=== PATIENT | male | born 1960 | race Caucasian/White ===

== ENCOUNTER 2017-03-12 05:43 | Inpatient (IN) | payer BC ==
[2017-03-11 10:52] VITALS: BMI 33.1
[2017-03-12] VITALS (57 sets, daily range): BP systolic 126–173; BP diastolic 44–92; PULSE 63–78; RESP 16–20; Ht 167.6 cm; Wt 96.0 kg
[~2017-03-12] VITALS: Ht 167.6 cm; Wt 96.0 kg
[2017-03-12] MEDS ORDERED: CEFAZOLIN 2 GM/50 ML (PMX) 50 ML IVPB ONE (06:00)
[2017-03-12] MEDS ORDERED: SOD CHLORIDE 0.9% 1,000 ML IV SCH ×2 (06:00→09:33)
[2017-03-12] MEDS ORDERED: GLYB5TAB3 PO (06:32)
[2017-03-12] MEDS ORDERED: METF850T PO (06:32)
[2017-03-12] MEDS ORDERED: NOVOLOG (06:32)
[2017-03-12] MEDS ORDERED: BUPIVACAINE 0.25% (MPF) 10 ML 10 ML VIAL ONE ×2 (06:47→09:10)
[2017-03-12] MEDS ORDERED: LOSA25TA5 PO (06:52)
[2017-03-12] MEDS ORDERED: MIDAZOLAM 1 MG/ML 2 ML INJ ONE (07:45)
[2017-03-12] MEDS ORDERED: ROCURONIUM 50 MG INJ ONE (07:45)
[2017-03-12] MEDS ORDERED: PROPOFOL 20 ML ONE (07:45)
[2017-03-12] MEDS ORDERED: LIDOCAINE 2% (SDV) 5 ML INJ ONE (07:45)
[2017-03-12] MEDS ORDERED: FENTAnyl 50 MCG/ML VIAL ONE (07:45)
[2017-03-12] MEDS ORDERED: SUCCINYLCHOLINE CHLORIDE 100 MG/5 ML SYG IV ONE (07:45)
[2017-03-12] MEDS ORDERED: FAMOTIDINE 20 MG INJ ONE ×2 (07:57)
[2017-03-12] MEDS ORDERED: ONDANSETRON 4 MG INJ ONE (07:57)
[2017-03-12] MEDS ORDERED: LABETALOL HCL 20MG INJ ONE (08:21)
[2017-03-12] MEDS ORDERED: EPHEDrine SULFATE 50 MG/5 ML SYG ONE (08:28)
[2017-03-12] MEDS ORDERED: INSULIN ASPART [NOVOLOG] 3 ML PEN SC ONE (08:30)
[2017-03-12] MEDS ORDERED: PROCHLORPERAZINE 10 MG INJ IV PRN (08:30)
[2017-03-12] MEDS ORDERED: FENTAnyl 50 MCG/ML VIAL IV PRN (08:30)
[2017-03-12] MEDS ORDERED: DIPHENHYDRAMINE 50 MG INJ IV PRN (08:30)
[2017-03-12] MEDS ORDERED: OXYCODONE/ACETAMINOPHEN (5/325) TAB PO PRN ×2 (08:30)
[2017-03-12] MEDS ORDERED: ONDANSETRON 4 MG INJ IV PRN ×2 (08:30→18:00)
[2017-03-12] MEDS ORDERED: HYDROmorphONE (0.2 MG/ML) 10ML SYG IV PRN (08:30)
[2017-03-12] MEDS ORDERED: MEPERIDINE 25 MG INJ IV PRN (08:30)
[2017-03-12] MEDS ORDERED: HYDROmorphONE 2 MG/ML SYG ONE (08:31)
[2017-03-12] MEDS ORDERED: GLYCOPYRROLATE 0.4 MG INJ ONE (09:15)
[2017-03-12] MEDS ORDERED: NEOSTIGMINE 3 MG/3 ML SYRINGE ONE (09:15)
--- NOTE | 2017-03-12 09:44 | OPR ---
Date/Time of Note Date/Time of Note DATE: 03/12/17 TIME: 09:36 Operative Report Procedure Date: Mar 12, 2017 Preoperative Diagnosis symptomatic gallstones Postoperative Diagnosis same Operation/Procedure Performed 1. laparoscopic converted to open cholecystectomy 2. intraabdominal placement of #19 trey drain 3. therapeutic injection of subcutaneous local anesthesia Surgeon see signature line Critical Care Paramedic none Anesthesia Type: general Estimated Blood Loss: 150 - 200 ml's Transfusion none Specimen gallbladder Grafts/Implants none Complications none Pt Condition Post Procedure: stable Indications This is a 56-year-old male with long-standing symptomatic gallstones. Patient finally came in for removal of his gallbladder. Risks alternatives benefits and personnel were discussed the patient. Surgical complications including but not limited to bleeding infection pain intra-abdominal organ injury, bile duct injury, conversion to open need for reoperation were discussed the patient. Patient expressed understanding consents to the operation. Procedure Description Patient is taken to the OR and prepped and draped in the usual sterile fashion. Surgical timeout is performed. IV antibiotics were given. Informed local transverse incision is made with a 15 blade. Dissection cautery was carried onto the fascia. The fascia was grasped with Jovanny's and divided with curved Bautista scissors. 0 Vicryl U stitch was placed into the fascia. Blueness on trocar is introduced. Pneumoperitoneum is established. Midepigastric 12 mm optical trocar was placed under direct visualization right upper quadrant upper flank 5 mm optical trochars were placed under direct visualization. Upon initial inspection there is a severe amount of adhesions to the gallbladder. These were taken down bluntly and with cautery. Further inspection showed that the gallbladder was completely intrahepatic. Attempts were made for dome down approach however the gallbladder appeared to severely adhesed into the liver and this was not amenable to laparoscopic approach. Conversion to open was made. Right subcostal incision was made with a 15 blade. Dissection cautery was carried down to the muscle in the anterior abdominal wall layer. Retractors were placed. The gallbladder was visualized and approached the dome down approach. The gallbladder was severely Gucci and it was difficult to define the borders. The gallbladder was opened and the stones were removed. The extent of the gallbladder was identified. Due to thickened tissues decision was made to do a subtotal cholecystectomy with 35 mm echelon vascular stapler. 2 fires were required to resect the gallbladder. The raw surface of the gallbladder bed had severe bruising. This was controlled with cautery. Additionally due to its intrahepatic nature BP 1-0 chromic blunt liver needles were used to close the raw surface. There is good hemostasis additionally Surgicel was placed for additional support. A right flank #19 Trey drain was placed. The drain was secured with 2-0 nylon suture. Skin was closed using skin jeffrey. Therapeutic subcutaneous local anesthesia was injected throughout the incision. Dry dressings were applied There was a significant amount of blood loss approximately 160 ml. The patient was stable however due to the blood loss the patient was sent to the ICU for continued monitoring. Nelsy CODY Mar 12, 2017 09:44
[2017-03-12] MEDS ORDERED: ACETAMINOPHEN 1000MG/100ML IV 100 ML IVPB ONE (10:00)
[2017-03-12] MEDS ORDERED: NALOXONE (0.4 MG/ML) INJ IV PRN (10:00)
[2017-03-12] MEDS: HYDROmorphONE 0.2 MG/ML PCA IV SCH (10:08)
[2017-03-12 10:32] LABS: BASOPHIL # 0.1 10^3/ul (0.0-0.1); BASOPHILS % 0.4 % (0.0-2.0); EOSINOPHILS # 0.2 10^3/ul (0.0-0.5); EOSINOPHILS % 1.1 % (0.0-7.0); HEMATOCRIT 33.8 % (42.0-52.0); HEMOGLOBIN 11.2 g/dl (14.0-18.0); HOLD TRANSMISSIONS 1; LYMPHOCYTES # 1.2 10^3/ul (0.8-2.9); MEAN CORPUSCULAR HEMOGLOBIN 29.1 pg (29.0-33.0); MEAN CORPUSCULAR HGB CONC 33.1 g/dl (32.0-37.0); MEAN CORPUSCULAR VOLUME 87.8 fl (82.0-101.0); MEAN PLATELET VOLUME 12.4 fl (7.4-10.4); MONOCYTE # 0.7 10^3/ul (0.3-0.9); MONOCYTES % 4.8 % (0.0-11.0); NEUTROPHIL # 12.7 10^3/ul (1.6-7.5); PLATELET COUNT 163 10^3/UL (140-415); RED BLOOD COUNT 3.85 10^6/ul (4.70-6.10); RED CELL DISTRIBUTION WIDTH 13.1 % (11.5-14.5); WHITE BLOOD COUNT 14.9 10^3/ul (4.8-10.8)
[2017-03-12 10:58] LABS: ALBUMIN 3.5 g/dl (3.3-4.9); BILIRUBIN,INDIRECT 0.3 mg/dl (0-1.1); BILIRUBIN,TOTAL 0.3 mg/dl (0.2-1.3); CALCIUM 8.4 mg/dl (8.4-10.2); CREATININE 0.96 mg/dl (0.61-1.24); POTASSIUM 4.5 mmol/L (3.5-5.1); TOTAL PROTEIN 6.4 g/dl (6.1-8.1)
[2017-03-12 10:59] LABS: ALBUMIN/GLOBULIN RATIO 1.2
[2017-03-12] MEDS ORDERED: hydrALAzine 20 MG INJ ONE (12:17)
[2017-03-12] MEDS ORDERED: hydrALAzine 20 MG INJ IV ONE (12:30)
[2017-03-12] MEDS: CEFAZOLIN 2 GM/50 ML (PMX) 50 ML IVPB SCH ×2 (16:23→20:24)
[2017-03-12] MEDS ORDERED: hydrALAzine 20 MG INJ IV PRN (18:00)
[2017-03-12] MEDS: SOD CHLORIDE 0.9% 1,000 ML IV SCH (18:00)
[2017-03-12] MEDS ORDERED: GLUCOSE GEL 15 GRAM TUBE PO PRN ×2 (18:30)
[2017-03-12] MEDS ORDERED: DEXTROSE 50% 50 ML SYRINGE IV PRN ×2 (18:30)
[2017-03-12] MEDS ORDERED: GLUCOSE GEL 15 GRAM TUBE BUCCAL PRN (18:30)
[2017-03-12] MEDS ORDERED: GLUCAGON 1 MG INJ IM PRN (18:30)
[2017-03-12 19:06] LABS: BASOPHILS % 0.3 % (0.0-2.0); EOSINOPHILS % 0.2 % (0.0-7.0); HEMATOCRIT 33.1 % (42.0-52.0); HEMOGLOBIN 11.1 g/dl (14.0-18.0); LYMPHOCYTES # 0.7 10^3/ul (0.8-2.9); LYMPHOCYTES % 4.8 % (15.0-51.0); MEAN CORPUSCULAR HEMOGLOBIN 29.5 pg (29.0-33.0); MEAN CORPUSCULAR HGB CONC 33.5 g/dl (32.0-37.0); MEAN PLATELET VOLUME 12.2 fl (7.4-10.4); MONOCYTE # 0.8 10^3/ul (0.3-0.9); NEUTROPHILS % 88.3 % (39.0-77.0); PLATELET COUNT 145 10^3/UL (140-415); RED BLOOD COUNT 3.76 10^6/ul (4.70-6.10); RED CELL DISTRIBUTION WIDTH 13.2 % (11.5-14.5); WHITE BLOOD COUNT 13.7 10^3/ul (4.8-10.8)
[2017-03-12] MEDS: INSULIN ASPART [NOVOLOG] 3 ML PEN SC SCH (20:40)
[2017-03-13] VITALS (11 sets, daily range): BP systolic 113–144; BP diastolic 57–66; PULSE 69–90; RESP 16–20
[2017-03-13 00:49] LABS: ABNORMAL IP MESSAGE 1; BASOPHILS % 0.3 % (0.0-2.0); EOSINOPHILS % 0.2 % (0.0-7.0); HEMATOCRIT 32.1 % (42.0-52.0); HEMOGLOBIN 10.8 g/dl (14.0-18.0); LYMPHOCYTES # 0.5 10^3/ul (0.8-2.9); MEAN CORPUSCULAR HEMOGLOBIN 29.6 pg (29.0-33.0); MEAN CORPUSCULAR HGB CONC 33.6 g/dl (32.0-37.0); MEAN CORPUSCULAR VOLUME 87.9 fl (82.0-101.0); MEAN PLATELET VOLUME 12.3 fl (7.4-10.4); MONOCYTE # 0.6 10^3/ul (0.3-0.9); MONOCYTES % 5.3 % (0.0-11.0); NEUTROPHIL # 9.7 10^3/ul (1.6-7.5); NEUTROPHILS % 88.6 % (39.0-77.0); PLATELET COUNT 145 10^3/UL (140-415); POSITIVE DIFF @See below; RED BLOOD COUNT 3.65 10^6/ul (4.70-6.10); RED CELL DISTRIBUTION WIDTH 13.2 % (11.5-14.5); WHITE BLOOD COUNT 10.9 10^3/ul (4.8-10.8)
[2017-03-13] MEDS: INSULIN GLARGINE [LANtus] 3 ML PEN SC SCH ×2 (01:17→22:15)
[2017-03-13] MEDS: CEFAZOLIN 2 GM/50 ML (PMX) 50 ML IVPB SCH (01:18)
[2017-03-13] MEDS: ACCU-CHEK XX SCH (02:02)
--- NOTE | 2017-03-13 04:01 | HP ---
DATE OF ADMISSION: 03/12/2017 CHIEF COMPLAINT AND HISTORY OF PRESENT ILLNESS: The patient is a 56-year-old gentleman with a histo ry of hypertension, diabetes; was seen by his primary care physician and was noted to have some abno rmality in his labs, apparently elevated liver enzymes and the patient subsequently underwent diagno stic studies and was diagnosed with gallstones. The patient was seen by Dr. Diaz as an outpatient an d was brought in to the hospital today and initial plan was to do laparoscopic cholecystectomy, graham jb, due to adhesions the patient had to undergo open cholecystectomy. The patient is being admitte d for further evaluation and management. Patient denied any chest pain or shortness of breath. No reported headache, dizziness, syncope. No history of cholecystitis. No history of fever or chills. No known history of coronary artery disease or congestive heart failure. No history of focal weak ness in the past. No history of paresthesias or weakness in any extremity. REVIEW OF SYSTEMS: Other than postoperative pain, the rest of the review of systems were unremarkab le. PAST SURGICAL HISTORY: None. ALLERGIES: NONE. SOCIAL HISTORY: Ex-smoker. No significant history of alcohol abuse. PHYSICAL EXAMINATION: GENERAL: The patient is conscious, awake, alert. VITAL SIGNS: Temperature 97.6, pulse 72, respirations 20, blood pressure 142/68, O2 sat ____% on 2 liters nasal cannula. HEENT: No eye discharge or redness. Extraocular movement intact. Oropharynx clear. NECK: Supple. No mass, no thyromegaly. CHEST: Fairly clear. CARDIOVASCULAR: ____ normal. No murmur. ABDOMEN: The patient is status post open cholecystectomy. EXTREMITIES: No leg edema. Pedal pulses palpable. SKIN: Without acute rash. NEUROLOGIC: The patient is awake, alert, fairly oriented with no gross focal deficits. LABORATORY DATA: Sodium 141, potassium 4.5, BUN 20, creatinine 0.9, glucose 253, AST 112, ALT 116, alk phos 99. IMPRESSION: 1. Gallstone with possible chronic cholecystitis, status post open cholecystectomy. 2. Hypertension. 3. Diabetes mellitus. PLAN: Patient admitted on medical floor. Patient will be kept n.p.o. except ice chips. The patien t will be started on sliding scale insulin. I will also add small dose of Lantus. The patient at h ome was on multiple oral agents and was taking NovoLog. He says he was taking NovoLog up to 20 unit s every day. We will use SCDs for DVT prophylaxis. As far as hypertension is concerned, will use I V hydralazine on p.r.n. basis. ____ with the patient's family. We will continue to follow him from a medical standpoint. Dictated By: ROCKY PORTER/HLOA Conf#: [id number] DID#: [id number]
[2017-03-13] MEDS: SOD CHLORIDE 0.9% 1,000 ML IV SCH ×2 (05:27→20:40)
[2017-03-13] MEDS: HYDROmorphONE 0.2 MG/ML PCA IV SCH (07:25)
[2017-03-13 08:04] LABS: BASOPHILS % 0.2 % (0.0-2.0); EOSINOPHILS # 0.1 10^3/ul (0.0-0.5); EOSINOPHILS % 0.6 % (0.0-7.0); HEMOGLOBIN 9.9 g/dl (14.0-18.0); LYMPHOCYTES # 0.9 10^3/ul (0.8-2.9); LYMPHOCYTES % 8.2 % (15.0-51.0); MEAN CORPUSCULAR HEMOGLOBIN 29.5 pg (29.0-33.0); MEAN CORPUSCULAR VOLUME 89.3 fl (82.0-101.0); MONOCYTE # 0.8 10^3/ul (0.3-0.9); MONOCYTES % 6.9 % (0.0-11.0); NEUTROPHIL # 9.5 10^3/ul (1.6-7.5); NEUTROPHILS % 83.6 % (39.0-77.0); PLATELET COUNT 157 10^3/UL (140-415); RED BLOOD COUNT 3.36 10^6/ul (4.70-6.10); RED CELL DISTRIBUTION WIDTH 13.5 % (11.5-14.5); WHITE BLOOD COUNT 11.4 10^3/ul (4.8-10.8)
--- NOTE | 2017-03-13 08:27 | PN ---
Date/Time of Note Date/Time of Note DATE: 03/13/17 TIME: 08:25 Assessment/Plan VTE Prophylaxis VTE Prophylaxis Intervention: SCD's Lines/Catheters IV Catheter Type (from Nrs): Saline Lock Assessment/Plan Chief Complaint/Hosp Course s/p lap converated to open due to difficult body habitus and intrahepatic gallbladder with drain placement Problems: Assessment/Plan dc home once tolerating diet Subjective 24 Hr Interval Summary Free Text/Dictation doing well, no nausea no vomiting hgb stable Exam/Review of Systems Vital Signs Vitals Vital Signs Date Time Temp Pulse Resp B/P Pulse Ox O2 Delivery O2 Flow Rate FiO2 03/13/17 08:21 69 03/13/17 04:03 98.1 20 134/63 99 03/12/17 20:20 Nasal Cannula 2.0 Intake and Output 03/12/17 03/12/17 03/13/17 15:00 23:00 07:00 Intake Total 1500 ml 100 ml 1750 ml Output Total 320 ml 93 ml 400 ml Balance 1180 ml 7 ml 1350 ml Exam c/d/i Results Result Diagram: 03/13/17 0748 03/12/17 1021 Results 24 hrs Laboratory Tests Test 03/12/17 09:46 03/12/17 10:21 03/12/17 15:00 03/12/17 18:40 Bedside Glucose 250 H 260 H White Blood Count 14.9 H 13.7 H Red Blood Count 3.85 L 3.76 L Hemoglobin 11.2 L 11.1 L Hematocrit 33.8 L 33.1 L Mean Corpuscular Volume 87.8 88.0 Mean Corpuscular Hemoglobin 29.1 29.5 Mean Corpuscular Hemoglobin Concent 33.1 33.5 Red Cell Distribution Width 13.1 13.2 Platelet Count 163 145 Mean Platelet Volume 12.4 H 12.2 H Neutrophils % 85.0 H 88.3 H Lymphocytes % 8.0 L 4.8 L Monocytes % 4.8 6.0 Eosinophils % 1.1 0.2 Basophils % 0.4 0.3 Nucleated Red Blood Cells % 0.0 0.0 Neutrophils # 12.7 H 12.0 H Lymphocytes # 1.2 0.7 L Monocytes # 0.7 0.8 Eosinophils # 0.2 0.0 Basophils # 0.1 0.0 Nucleated Red Blood Cells # 0.0 0.0 CBC Results Faxed/Phoned 1 *H Sodium Level 141 Potassium Level 4.5 Chloride Level 110 Carbon Dioxide Level 25 Anion Gap 11 Blood Urea Nitrogen 20 Creatinine 0.96 Glucose Level 253 H Calcium Level 8.4 Total Bilirubin 0.3 Direct Bilirubin 0.00 Indirect Bilirubin 0.3 Aspartate Amino Transf (AST/SGOT) 112 H Alanine Aminotransferase (ALT/SGPT) 116 H Alkaline Phosphatase 99 Total Protein 6.4 Albumin 3.5 Globulin 2.90 Albumin/Globulin Ratio 1.20 Test 03/12/17 20:26 03/13/17 00:35 03/13/17 00:50 03/13/17 07:48 Bedside Glucose 288 H 232 H White Blood Count 10.9 #H 11.4 H Red Blood Count 3.65 L 3.36 L Hemoglobin 10.8 L 9.9 L Hematocrit 32.1 L 30.0 L Mean Corpuscular Volume 87.9 89.3 Mean Corpuscular Hemoglobin 29.6 29.5 Mean Corpuscular Hemoglobin Concent 33.6 33.0 Red Cell Distribution Width 13.2 13.5 Platelet Count 145 157 Mean Platelet Volume 12.3 H 13.0 H Neutrophils % 88.6 H 83.6 H Lymphocytes % 5.0 L 8.2 L Monocytes % 5.3 6.9 Eosinophils % 0.2 0.6 Basophils % 0.3 0.2 Nucleated Red Blood Cells % 0.0 0.0 Neutrophils # 9.7 H 9.5 H Lymphocytes # 0.5 L 0.9 Monocytes # 0.6 0.8 Eosinophils # 0.0 0.1 Basophils # 0.0 0.0 Nucleated Red Blood Cells # 0.0 0.0 Medications Medications Current Medications Cefazolin Sodium/ Dextrose (Ancef 2 Gm/50 ml (Pmx)) 50 ml @ 100 mls/hr Q8H IVPB Last administered on 03/13/17 01:18; Admin Dose 100 MLS/HR; Start 03/12 at 10:00; Stop 03/13/17 at 09:59 Naloxone HCl (Narcan) 0.2 mg Q2M PRN IV RR 8 BREATHS/MIN OR LESS; Start at 10:00 Hydromorphone HCl (Dilaudid [employer]) Q4PCA IV Last administered on 03/13/17 07: 25; Admin Dose 6 MG; Start 03/12/17 at 10:00 Diagnostic Test (Pha) (Accu-Chek) 1 ea 02 XX Last administered on 03/13/17 02 :02; Admin Dose 1 EA; Start 03/13/17 at 02:00 Ondansetron HCl (Zofran Inj) 4 mg Q4H PRN IV NAUSEA AND/OR VOMITING; Start 05/17 at 18:00 Hydralazine HCl 10 mg 10 mg Q4H PRN IV sbp>160,dbp>95; Start 03/12/17 at 18:00 Sodium Chloride (NS) 1,000 ml @ 75 mls/hr [id number] IV Last administered on 05:27; Admin Dose 75 MLS/HR; Start 03/12/17 at 18:00 Miscellaneous Information 1 ea NOTE XX ; Start 03/12/17 at 18:30 Glucose (Glutose) 15 gm Q15M PRN PO DECREASED GLUCOSE; Start 03/12/17 at 18:30 Glucose (Glutose) 22.5 gm Q15M PRN PO DECREASED GLUCOSE; Start 03/12/17 at 18: 30 Dextrose (D50w Syringe) 25 ml Q15M PRN IV DECREASED GLUCOSE; Start 03/12/17 at 18:30 Dextrose (D50w Syringe) 50 ml Q15M PRN IV DECREASED GLUCOSE; Start 03/12/17 at 18:30 Glucagon (Glucagen) 1 mg Q15M PRN IM DECREASED GLUCOSE; Start 03/12/17 at 18: 30 Glucose (Glutose) 15 gm Q15M PRN BUCCAL DECREASED GLUCOSE; Start 03/12/17 at 18:30 Insulin Glargine (Lantus) 10 unit DAILY@20 SC Last administered on 03/13/17 01:17; Admin Dose 10 UNIT; Start 03/12/17 at 23:00 Nelsy CODY Mar 13, 2017 08:27
[2017-03-13] MEDS: INSULIN ASPART [NOVOLOG] 3 ML PEN SC SCH ×4 (08:43→21:16)
--- NOTE | 2017-03-13 19:23 | PN ---
Date/Time of Note Date/Time of Note DATE: 03/13/17 TIME: 19:19 Assessment/Plan VTE Prophylaxis VTE Prophylaxis Intervention: SCD's Lines/Catheters IV Catheter Type (from Nrsg): Saline Lock Assessment/Plan Chief Complaint/Hosp Course Hypoactive bowel sounds, negative flatus, patient is still on [employer]AREER REPRESENTATIVE morphine for pain. Will D/C [employer] REPRESENTATIVE morphine, continue Dupuyer and morphine IV as needed for pain. Patient is sitting in bed eating dinner did not eat much for lunch. Anticipate discharge home tomorrow if patient pain is well controlled and patient can tolerate diet well. Problems: Assessment/Plan 1. Gallstone with possible chronic cholecystitis, status post open cholecystectomy. 2. Hypertension. 3. Diabetes mellitus with hemoglobin A1c 9.3. Continue Lantus and NovoLog. Exam/Review of Systems Vital Signs Vitals Vital Signs Date Time Temp Pulse Resp B/P Pulse Ox O2 Delivery O2 Flow Rate FiO2 03/13/17 16:37 76 17 144/66 96 03/13/17 11:56 98.2 03/13/17 08:10 Nasal Cannula 2.0 Intake and Output 03/12/17 03/12/17 03/13/17 15:00 23:00 07:00 Intake Total 1500 ml 100 ml 1750 ml Output Total 320 ml 93 ml 400 ml Balance 1180 ml 7 ml 1350 ml Exam Constitutional: alert, oriented Head: normocephalic Neck: supple Respiratory: clear to auscultation Cardiovascular: nl pulses Gastrointestinal: other (Status post surgery, TANISHA teena), soft, tender Musculoskeletal: nl extremities to inspection Results Result Diagram: 03/13/17 0748 03/12/17 1021 Results 24 hrs Laboratory Tests Test 03/12/17 20:26 03/13/17 00:35 03/13/17 00:50 03/13/17 07:48 Bedside Glucose 288 H 232 H White Blood Count 10.9 #H 11.4 H Red Blood Count 3.65 L 3.36 L Hemoglobin 10.8 L 9.9 L Hematocrit 32.1 L 30.0 L Mean Corpuscular Volume 87.9 89.3 Mean Corpuscular Hemoglobin 29.6 29.5 Mean Corpuscular Hemoglobin Concent 33.6 33.0 Red Cell Distribution Width 13.2 13.5 Platelet Count 145 157 Mean Platelet Volume 12.3 H 13.0 H Neutrophils % 88.6 H 83.6 H Lymphocytes % 5.0 L 8.2 L Monocytes % 5.3 6.9 Eosinophils % 0.2 0.6 Basophils % 0.3 0.2 Nucleated Red Blood Cells % 0.0 0.0 Neutrophils # 9.7 H 9.5 H Lymphocytes # 0.5 L 0.9 Monocytes # 0.6 0.8 Eosinophils # 0.0 0.1 Basophils # 0.0 0.0 Nucleated Red Blood Cells # 0.0 0.0 Hemoglobin A1c 9.4 H Test 03/13/17 08:40 03/13/17 12:47 03/13/17 17:47 Bedside Glucose 161 193 171 Medications Medications Current Medications Diagnostic Test (Pha) (Accu-Chek) 1 ea 02 XX Last administered on 03/13/17 02 :02; Admin Dose 1 EA; Start 03/13/17 at 02:00 Ondansetron HCl (Zofran Inj) 4 mg Q4H PRN IV NAUSEA AND/OR VOMITING; Start 05/17 at 18:00 Hydralazine HCl 10 mg 10 mg Q4H PRN IV sbp>160,dbp>95; Start 03/12/17 at 18:00 Sodium Chloride (NS) 1,000 ml @ 75 mls/hr [id number] IV Last administered on 05:27; Admin Dose 75 MLS/HR; Start 03/12/17 at 18:00 Miscellaneous Information 1 ea NOTE XX ; Start 03/12/17 at 18:30 Glucose (Glutose) 15 gm Q15M PRN PO DECREASED GLUCOSE; Start 03/12/17 at 18:30 Glucose (Glutose) 22.5 gm Q15M PRN PO DECREASED GLUCOSE; Start 03/12/17 at 18: 30 Dextrose (D50w Syringe) 25 ml Q15M PRN IV DECREASED GLUCOSE; Start 03/12/17 at 18:30 Dextrose (D50w Syringe) 50 ml Q15M PRN IV DECREASED GLUCOSE; Start 03/12/17 at 18:30 Glucagon (Glucagen) 1 mg Q15M PRN IM DECREASED GLUCOSE; Start 03/12/17 at 18: 30 Glucose (Glutose) 15 gm Q15M PRN BUCCAL DECREASED GLUCOSE; Start 03/12/17 at 18:30 Insulin Glargine (Lantus) 10 unit DAILY@20 SC Last administered on 03/13/17t 01:17; Admin Dose 10 UNIT; Start 03/12/17 at 23:00 Acetaminophen/ Hydrocodone Bitart ([place] (5/325)) 1 tab Q4H PRN PO PAIN LEVEL 4 -7; Start 03/13/17 at 18:00 Morphine Sulfate (morphine) 2 mg Q4H PRN IV PAIN LEVEL 8-10; Start 03/13/17 at 18:00 SAMANTHA MERCADO Mar 13, 2017 19:23
[2017-03-13] MEDS: HYDROCODONE/APAP (5/325) TAB PO PRN (21:10)
[2017-03-13] MEDS: morphine 2 MG INJ IV PRN (22:09)
[2017-03-14] VITALS (11 sets, daily range): BP systolic 118–135; BP diastolic 60–69; PULSE 72–95; RESP 16–20
[2017-03-14] MEDS: HYDROCODONE/APAP (5/325) TAB PO PRN ×2 (01:24→14:58)
[2017-03-14] MEDS: ACCU-CHEK XX SCH (02:00)
[2017-03-14] MEDS: morphine 2 MG INJ IV PRN ×4 (03:36→20:37)
[2017-03-14] MEDS: INSULIN ASPART [NOVOLOG] 3 ML PEN SC SCH ×4 (08:53→20:46)
[2017-03-14 08:54] LABS: ABNORMAL IP MESSAGE 1; BASOPHILS % 0.3 % (0.0-2.0); EOSINOPHILS # 0.2 10^3/ul (0.0-0.5); EOSINOPHILS % 2.4 % (0.0-7.0); HEMATOCRIT 29.2 % (42.0-52.0); HEMOGLOBIN 9.3 g/dl (14.0-18.0); LYMPHOCYTES # 0.9 10^3/ul (0.8-2.9); LYMPHOCYTES % 9.1 % (15.0-51.0); MEAN CORPUSCULAR HEMOGLOBIN 29.2 pg (29.0-33.0); MEAN CORPUSCULAR HGB CONC 31.8 g/dl (32.0-37.0); MEAN CORPUSCULAR VOLUME 91.5 fl (82.0-101.0); MEAN PLATELET VOLUME 13.3 fl (7.4-10.4); MONOCYTE # 0.9 10^3/ul (0.3-0.9); MONOCYTES % 9.4 % (0.0-11.0); NEUTROPHIL # 7.6 10^3/ul (1.6-7.5); NEUTROPHILS % 78.3 % (39.0-77.0); PLATELET COUNT 124 10^3/UL (140-415); POSITIVE DIFF @See below; RED BLOOD COUNT 3.19 10^6/ul (4.70-6.10); RED CELL DISTRIBUTION WIDTH 13.5 % (11.5-14.5); WHITE BLOOD COUNT 9.7 10^3/ul (4.8-10.8)
[2017-03-14 09:28] LABS: ALBUMIN 3.7 g/dl (3.3-4.9); ALBUMIN/GLOBULIN RATIO 1.27; BILIRUBIN,INDIRECT 0.8 mg/dl (0-1.1); BILIRUBIN,TOTAL 0.8 mg/dl (0.2-1.3); CALCIUM 8.5 mg/dl (8.4-10.2); CREATININE 1.15 mg/dl (0.61-1.24); POTASSIUM 4.3 mmol/L (3.5-5.1); TOTAL PROTEIN 6.6 g/dl (6.1-8.1)
[2017-03-14] MEDS: SOD CHLORIDE 0.9% 1,000 ML IV SCH ×2 (10:00→18:00)
--- NOTE | 2017-03-14 12:07 | PN ---
Date/Time of Note Date/Time of Note DATE: 03/14/17 TIME: 12:06 Assessment/Plan VTE Prophylaxis VTE Prophylaxis Intervention: other Lines/Catheters [facility] Saline Lock Urinary Cath still in place: No Assessment/Plan Chief Complaint/Hosp Course 1. Gallstone with possible chronic cholecystitis, status post open cholecystectomy. 2. Hypertension. 3. Diabetes mellitus with hemoglobin A1c 9.3. Continue Lantus and NovoLog. Problems: Subjective 24 Hr Interval Summary Free Text/Dictation Patient has no complaints Exam/Review of Systems Vital Signs Vitals Vital Signs Date Time Temp Pulse Resp B/P Pulse Ox O2 Delivery O2 Flow Rate FiO2 03/14/17 11:50 98.4 87 18 135/69 95 03/14/17 09:15 Nasal Cannula 2.0 Intake and Output 03/13/17 03/13/17 03/14/17 15:00 23:00 07:00 Intake Total 1350 ml 800 ml Output Total 30 ml 615 ml 20 ml Balance -30 ml 735 ml 780 ml Exam Constitutional: well developed Head: atraumatic, normocephalic Neck: supple Respiratory: clear to auscultation Cardiovascular: regular rate and rhythm Gastrointestinal: non-tender, soft Extremities: normal pulses Results Result Diagram: 03/14/17 0818 03/14/17 0818 Results 24 hrs Laboratory Tests Test 03/13/17 12:47 03/13/17 17:47 03/13/17 21:07 03/14/17 03:33 Bedside Glucose 193 171 197 207 Test 03/14/17 08:18 03/14/17 08:49 White Blood Count 9.7 Red Blood Count 3.19 L Hemoglobin 9.3 L Hematocrit 29.2 L Mean Corpuscular Volume 91.5 Mean Corpuscular Hemoglobin 29.2 Mean Corpuscular Hemoglobin Concent 31.8 L Red Cell Distribution Width 13.5 Platelet Count 124 #L Mean Platelet Volume 13.3 H Neutrophils % 78.3 H Lymphocytes % 9.1 L Monocytes % 9.4 Eosinophils % 2.4 Basophils % 0.3 Nucleated Red Blood Cells % 0.0 Neutrophils # 7.6 H Lymphocytes # 0.9 Monocytes # 0.9 Eosinophils # 0.2 Basophils # 0.0 Nucleated Red Blood Cells # 0.0 Sodium Level 140 Potassium Level 4.3 Chloride Level 105 Carbon Dioxide Level 25 Anion Gap 14 Blood Urea Nitrogen 25 H Creatinine 1.15 Glucose Level 173 Calcium Level 8.5 Total Bilirubin 0.8 Direct Bilirubin 0.00 Indirect Bilirubin 0.8 Aspartate Amino Transf (AST/SGOT) 48 #H Alanine Aminotransferase (ALT/SGPT) 86 H Alkaline Phosphatase 98 Total Protein 6.6 Albumin 3.7 Globulin 2.90 Albumin/Globulin Ratio 1.27 Bedside Glucose 205 Medications Medications Current Medications Diagnostic Test (Pha) (Accu-Chek) 1 ea 02 XX Last administered on 03/14/17 02 :00; Admin Dose 1 EA; Start 03/13/17 at 02:00 Ondansetron HCl (Zofran Inj) 4 mg Q4H PRN IV NAUSEA AND/OR VOMITING; Start 05/17 at 18:00 Hydralazine HCl 10 mg 10 mg Q4H PRN IV sbp>160,dbp>95; Start 03/12/17 at 18:00 Sodium Chloride (NS) 1,000 ml @ 75 mls/hr [id number] IV Last administered on 05:27; Admin Dose 75 MLS/HR; Start 03/12/17 at 18:00 Miscellaneous Information 1 ea NOTE XX ; Start 03/12/17 at 18:30 Glucose (Glutose) 15 gm Q15M PRN PO DECREASED GLUCOSE; Start 03/12/17 at 18:30 Glucose (Glutose) 22.5 gm Q15M PRN PO DECREASED GLUCOSE; Start 03/12/17 at 18: 30 Dextrose (D50w Syringe) 25 ml Q15M PRN IV DECREASED GLUCOSE; Start 03/12/17 at 18:30 Dextrose (D50w Syringe) 50 ml Q15M PRN IV DECREASED GLUCOSE; Start 03/12/17 at 18:30 Glucagon (Glucagen) 1 mg Q15M PRN IM DECREASED GLUCOSE; Start 03/12/17 at 18: 30 Glucose (Glutose) 15 gm Q15M PRN BUCCAL DECREASED GLUCOSE; Start 03/12/17 at 18:30 Insulin Glargine (Lantus) 10 unit DAILY@20 SC Last administered on 03/13/17 22:15; Admin Dose 10 UNIT; Start 03/12/17 at 23:00 Acetaminophen/ Hydrocodone Bitart ([place] (5/325)) 1 tab Q4H PRN PO PAIN LEVEL 4 -7 Last administered on 03/14/17 01:24; Admin Dose 1 TAB; Start 03/13/17 at 18:00 Morphine Sulfate (morphine) 2 mg Q4H PRN IV PAIN LEVEL 8-10 Last administered on 03/14/17 03:36; Admin Dose 2 MG; Start 03/13/17 at 18:00 NADEEM GRANDE Mar 14, 2017 12:07
[2017-03-14] MEDS: INSULIN GLARGINE [LANtus] 3 ML PEN SC SCH (20:45)
[2017-03-15] VITALS (12 sets, daily range): BP systolic 101–163; BP diastolic 59–75; PULSE 75–99; RESP 18–21
[2017-03-15] MEDS: morphine 2 MG INJ IV PRN ×4 (00:38→19:59)
[2017-03-15] MEDS: HYDROCODONE/APAP (5/325) TAB PO PRN ×2 (00:39→23:18)
[2017-03-15] MEDS: ACCU-CHEK XX SCH (02:00)
[2017-03-15] MEDS: INSULIN ASPART [NOVOLOG] 3 ML PEN SC SCH ×4 (07:57→20:08)
[2017-03-15] MEDS: SOD CHLORIDE 0.9% 1,000 ML IV SCH (12:40)
--- NOTE | 2017-03-15 13:06 | PN ---
Date/Time of Note Date/Time of Note DATE: 03/15/17 TIME: 13:06 Assessment/Plan VTE Prophylaxis VTE Prophylaxis Intervention: other Lines/Catheters IV C[facility]ter Type (from [facility]): Saline Lock Urinary Cath still in place: No Assessment/Plan Chief Complaint/Hosp Course 1. Gallstone with possible chronic cholecystitis, status post open cholecystectomy. 2. Hypertension. 3. Diabetes mellitus with hemoglobin A1c 9.3. Continue Lantus and NovoLog. Problems: Subjective 24 Hr Interval Summary Free Text/Dictation Patient has no complaints Exam/Review of Systems Vital Signs Vitals Vital Signs Date Time Temp Pulse Resp B/P Pulse Ox O2 Delivery O2 Flow Rate FiO2 03/15/17 11:59 98.3 102 18 137/69 92 03/15/17 00:54 2.0 03/14/17 19:50 Nasal Cannula Intake and Output 03/14/17 03/14/17 03/15/17 15:00 23:00 07:00 Intake Total 1250 ml 750 ml Output Total 20 ml 12 ml Balance 1230 ml 738 ml Exam Constitutional: well developed Head: atraumatic, normocephalic Neck: supple Respiratory: clear to auscultation Cardiovascular: regular rate and rhythm Gastrointestinal: non-tender, soft Extremities: normal pulses Results Result Diagram: 03/14/1718 03/14/17 0818 Results 24 hrs Laboratory Tests Test 03/14/17 17:44 03/14/17 20:42 03/15/17 03:49 03/15/17 07:52 Bedside Glucose 259 H 245 H 180 169 Test 03/15/17 11:39 Bedside Glucose 263 H Medications Medications Current Medications Diagnostic Test (Pha) (Accu-Chek) 1 ea 02 XX Last administered on 03/15/17 02 :00; Admin Dose 1 EA; Start 03/13/17 at 02:00 Ondansetron HCl (Zofran Inj) 4 mg Q4H PRN IV NAUSEA AND/OR VOMITING; Start 05/17 at 18:00 Hydralazine HCl 10 mg 10 mg Q4H PRN IV sbp>160,dbp>95; Start 03/12/17 at 18:00 Sodium Chloride (NS) 1,000 ml @ 75 mls/hr [id number] IV Last administered on 18:00; Admin Dose 75 MLS/HR; Start 03/12/17 at 18:00 Miscellaneous Information 1 ea NOTE XX ; Start 03/12/17 at 18:30 Glucose (Glutose) 15 gm Q15M PRN PO DECREASED GLUCOSE; Start 03/12/17 at 18:30 Glucose (Glutose) 22.5 gm Q15M PRN PO DECREASED GLUCOSE; Start 03/12/17 at 18: 30 Dextrose (D50w Syringe) 25 ml Q15M PRN IV DECREASED GLUCOSE; Start 03/12/17 at 18:30 Dextrose (D50w Syringe) 50 ml Q15M PRN IV DECREASED GLUCOSE; Start 03/12/17 at 18:30 Glucagon (Glucagen) 1 mg Q15M PRN IM DECREASED GLUCOSE; Start 03/12/17 at 18: 30 Glucose (Glutose) 15 gm Q15M PRN BUCCAL DECREASED GLUCOSE; Start 03/12/17 at 18:30 Insulin Glargine (Lantus) 10 unit DAILY@20 SC Last administered on 03/14/17 20:45; Admin Dose 10 UNIT; Start 03/12/17 at 23:00 Acetaminophen/ Hydrocodone Bitart ([place] (5/325)) 1 tab Q4H PRN PO PAIN LEVEL 4 -7 Last administered on 03/15/17 00:39; Admin Dose 1 TAB; Start 03/13/17 at 18:00 Morphine Sulfate (morphine) 2 mg Q4H PRN IV PAIN LEVEL 8-10 Last administered on 03/15/17 05:41; Admin Dose 2 MG; Start 03/13/17 at 18:00 NADEEM GRANDE Mar 15, 2017 13:06
[2017-03-15] MEDS: INSULIN GLARGINE [LANtus] 3 ML PEN SC SCH (20:06)
[2017-03-16] VITALS (8 sets, daily range): BP systolic 95–125; BP diastolic 58–71; PULSE 69–78; RESP 16–18
[2017-03-16] MEDS: SOD CHLORIDE 0.9% 1,000 ML IV SCH ×2 (02:00→15:20)
[2017-03-16] MEDS: ACCU-CHEK XX SCH (02:00)
[2017-03-16] MEDS: morphine 2 MG INJ IV PRN (02:57)
[2017-03-16] MEDS: INSULIN ASPART [NOVOLOG] 3 ML PEN SC SCH ×2 (08:40→11:56)
[2017-03-16] MEDS ORDERED: LANT3I SC (14:58)
[2017-03-16] MEDS ORDERED: HYDR-3498 PO (14:58)
[2017-03-16] MEDS ORDERED: NOVO3I SC (14:58)
[2017-03-16] MEDS ORDERED: METF1000 PO (14:58)
[2017-03-16] MEDS ORDERED: INSULIN ASPART [NOVOLOG] 3 ML PEN SC SCH (18:05)
--- NOTE | 2017-03-16 19:13 | DS ---
Date/Time of Note Date/Time of Note DATE: 03/16/17 TIME: 19:11 Discharge Summary Admission/Discharge Info Admit Date/Time Mar 12, 2017 at 09:14 Discharge Date/Time Mar 16, 2017 at 16:22 Patient Condition: Stable Hx of Present Illness The patient is a 56-year-old gentleman with a history of hypertension, diabetes ; was seen by his primary care physician and was noted to have some abnormality in his labs, apparently elevated liver enzymes and the patient subsequently underwent diagnostic studies and was diagnosed with gallstones. The patient was seen by Dr. Diaz as an outpatient and was brought in to the hospital today and initial plan was to do laparoscopic cholecystectomy, however, due to adhesions the patient had to undergo open cholecystectomy. The patient is being admitted for further evaluation and management. Patient denied any chest pain or shortness of breath. No reported headache, dizziness, syncope. No history of cholecystitis. No history of fever or chills. No known history of coronary artery disease or congestive heart failure. No history of focal weakness in the past. No history of paresthesias or weakness in any extremity. Hospital Course 1. Gallstone with possible chronic cholecystitis, status post open cholecystectomy by Dr. Diaz. diet advanced to 1800 ADA diet, patient is able to have bowel movement, recovered well will be discharged home with a TANISHA drain. 2. Hypertension. 3. Diabetes mellitus with hemoglobin A1c 9.3. Continue Lantus and NovoLog, diabetic education. Home Meds Active Scripts Metformin Hcl* (Metformin Hcl*) 1,000 Mg Tablet, 1000 MG PO WITH BREAKFAST DINNE , #60 TAB Prov:SAMANTHA MERCADO 03/16/17 Insulin Glargine* (Lantus*) 100 Unit/Ml Soln, 16 UNIT SC DAILY@20 for 30 Days Prov:SAMANTHA MERCADO 03/16/17 Insulin Aspart* (Novolog Insulin Pen*) 100 Unit/Ml Soln, 5 UNIT SC WITH MEALS for 30 Days Prov:SAMANTHA MERCADO 03/16/17 Hydrocodone Bit-Acetaminophen (Hydrocodone Bit-APAP) 5-325MG Tablet, 1 TAB PO Q6 Y for PAIN LEVEL 4-7, #30 TAB Prov:SAMANTHA MERCADO 03/16/17 Reported Medications Losartan Potassium* (Losartan Potassium*) 25 Mg Tablet, 25 MG PO DAILY, TAB 03/12/17 Glyburide* (Glyburide*) 5 Mg Tablet, 5 MG PO DAILY, #30 TAB 03/12/17 Discontinued Reported Medications [Novolog] No Conflict Check 03/12/17 Metformin Hcl* (Metformin Hcl*) 850 Mg Tablet, 850 MG PO DAILY, #30 TAB 03/12/17 Follow-up Plan Follow-up with Dr. Diaz in 1 week, follow-up with primary care physician in 2 weeks. Primary Care Provider Kayleigh Mason Pending Labs Laboratory Tests Test 03/15/17 20:02 03/16/17 03:01 03/16/17 08:35 03/16/17 11:51 Bedside Glucose 241mg/dL (70-220) 249mg/dL (70-220) 206mg/dL (70-220) 268mg/dL (70-220) SAMANTHA MERCADO Mar 16, 2017 19:13
[2017-03-16] MEDS ORDERED: INSULIN GLARGINE [LANtus] 3 ML PEN SC SCH (20:00)
== END 2017-03-16 16:22 | disposition home or self-care (01) | DRG 416 ==
LOC: SDS 05:43 → ICU 09:14 → MS4 17:51
PROVIDERS: ADMIT Internal Medicine; ATTEND Surgery
PROC: 0FJ44ZZ Inspection of Gallbladder, Percutaneous Endoscopic Approach (ICD-10-PCS; 2017-03-12)
PROC: 0FT40ZZ Resection of Gallbladder, Open Approach (ICD-10-PCS; principal; 2017-03-12 07:30)
DX: K80.10 Calculus of gallbladder with chronic cholecystitis without obstruction (principal); I10 Essential (primary) hypertension; E11.9 Type 2 diabetes mellitus without complications; Z53.31 Laparoscopic surgical procedure converted to open procedure; Z79.4 Long term (current) use of insulin
CPT/HCPCS: 80053; 82962; 83036; 85025; 88304; J0131; J0360; J0690; J1170; J1815; J2250; J2270; J2405; J2710; J3010; J7030